=== PATIENT | female | born 2000 | race Caucasian/White ===

== ENCOUNTER → 2019-12-27 | Outpatient (CLI) | payer OTHER | LOC: COL.RAD 12-23 09:00 | DX: S73.192A Other sprain of left hip, initial encounter (principal) | CPT/HCPCS: A9585; Q9967 ==

== ENCOUNTER → 2020-07-11 | Outpatient (CLI) | payer OTHER | LOC: COL.RAD 06-28 09:45 | DX: M25.551 Pain in right hip (principal) | CPT/HCPCS: A9585; Q9967 ==